=== PATIENT | female | born 1955 | race Caucasian/White ===

== ENCOUNTER 2022-09-21 11:16 | Day surgery (SDC) | payer MEDICARE ==
[2022-09-18 12:01] VITALS: BMI 25.0
[~2022-09-21 11:16] MED LIST: CLINDAMYCIN 600 MG in DEXTROSE 5% IN WATER 50 ML IVPB PRN; FAMOTIDINE 20 MG/2 ML VIAL IV PRN
[2022-09-21] MEDS: LACTATED RINGERS 1,000 ML IV SCH ×2 (12:27→14:14)
[2022-09-21] MEDS ORDERED: ONDANSETRON 4 MG/2 ML VIAL ONE (12:40)
[2022-09-21 12:43] LABS: HGB 14.4 gm/dL (11.4-16.0); MCH 31.7 pg (25.0-35.0); MCHC 33.5 g/dL (31.0-37.0); MCV 94.8 fL (80.0-100.0); Mean Platelet Volume 8.4; Platelet Count 247 k/uL (150-450); RBC 4.54 m/uL (3.80-5.40); RDW 12.6 % (11.5-15.5); WBC 7.5 k/uL (3.8-10.6)
[2022-09-21] MEDS ORDERED: DEXAMETHASONE SOD PHOSPHATE 4 MG/ML 1 ML VIAL IVP ONE (12:45)
[2022-09-21 12:57] LABS: Calcium 12.8 mg/dL (8.4-10.2); Potassium 4.4 mmol/L (3.5-5.1); Total Bilirubin 0.5 mg/dL (0.2-1.3); Total Protein 8.4 g/dL (6.3-8.2)
[2022-09-21] MEDS ORDERED: ROCURONIUM 10 MG/ML (5 ML VIAL) IV ONE (14:14)
[2022-09-21] MEDS ORDERED: MIDAZOLAM 2 MG/2 ML VIAL ONE (14:14)
[2022-09-21] MEDS ORDERED: LIDOCAINE 2% INJ 20 MG/ML (2 ML VIAL) ONE (14:14)
[2022-09-21] MEDS ORDERED: PROPOFOL 10 MG/ML 20 ML VIAL IV ONE (14:14)
[2022-09-21] MEDS ORDERED: PHENYLEPHRINE-0.9% NACL SYG 1,000 MCG/10 ML SYRINGE ONE (14:14)
[2022-09-21] MEDS ORDERED: NEOSTIGMINE 1 MG/ML 10 ML VIAL ONE (14:14)
[2022-09-21] MEDS ORDERED: ePHEDrine 50 MG/ML 1 ML VIAL ONE (14:14)
[2022-09-21] MEDS ORDERED: fentaNYL (PF) 50 MCG/ML 2 ML AMP ONE (14:14)
[2022-09-21] MEDS ORDERED: GLYCOPYRROLATE 0.2 MG/ML 2 ML VIAL ONE (14:14)
--- NOTE | 2022-09-21 14:16 | NM ---
EXAMINATION TYPE: NM parathyroid DATE OF EXAM: 09/21/2022 COMPARISON: NONE INDICATION: Abnormal parathyroid. 10 mCi of technetium 99m sestamibi was administered one hour prior to surgery for assistance during s urgery localization. No imaging was performed. IMPRESSIONS: 1. Successful injection for intrasurgical parathyroid localization.
[2022-09-21] MEDS ORDERED: LIDOCAINE 1%-EPI 1:100,000 20 ML VIAL SQ ONE (15:18)
[2022-09-21] MEDS ORDERED: LACTATED RINGERS 1,000 ML IV ONE (16:10)
[2022-09-21 17:14] VITALS: TEMP 96.8
--- NOTE | 2022-09-21 17:30 | P.OP ---
Date of Procedure: 09/21/22 Preoperative Diagnosis: Parathyroid adenoma Postoperative Diagnosis: same Procedure(s) Performed: Excision of mediastinal parathyroid adenoma Anesthesia: GETA Surgeon: Gabriel Delacruz Estimated Blood Loss (ml): 5 Pathology: other (parathyroid adenoma) Condition: stable Disposition: PACU Indications for Procedure: This patient had an elevated calcium and elevated parathyroid hormone level with normal renal function. There appears to be a parathyroid adenoma and surgical removal is recommended. Operative Findings: Patient had a parathyroid adenoma at the interface of the upper mediastinum on the left side Description of Procedure: Patient was taken to the operative room placed in the supine position a general inhalation anesthetic was administered to the patient by mask and subsequently intubated with a cuffed endotracheal tube by the department of anesthesia with a functioning IV line in place. Patient was monitored throughout the entire case by the department of anesthesia. The neck was sterilely prepped and draped in the usual fashion and anesthetized. A curvilinear incision was made horizontally over the thyroid and dissection was carried to the strap muscles and then in the midline and retracted. This exposed the thyroid gland. We freed up the thyroid gland on the left side and the right side and we did a parathyroid exploration. Previous to the surgery we injected technetium 99 sestamibi. With use of a gamma probe and with exploration we were able to identify a parathyroid adenoma was located in the upper mediastinum deep in the neck. We found the adenoma delivered the adenoma. Powdered Surgicel was applied. Strap muscles were closed with 4-0 Vicryl. Subcutaneous fat was reapproximated with 4-0 Vicryl. The close the deep dermal layer with 4-0 Monocryl and the skin was closed with a 50 rapid Vicryl in a running nonlocking fashion. Steri-Strips were applied and the patient tolerated this well. Follow-up will be in the office in 1 week.
[2022-09-21] MEDS ORDERED: oxyCODONE-APAP 5-325MG 1 EACH TAB ONE ×2 (18:27→19:53)
[2022-09-21] MEDS ORDERED: oxyCODONE-APAP 5-325MG 1 EACH TAB PO ONE ×2 (18:29→19:57)
[2022-09-21 18:57] VITALS: RESP 14
[2022-09-21 20:18] VITALS: BP 115/69; PULSE 106
== END 2022-09-21 20:36 | disposition home or self-care (01) ==
LOC: OR 11:16
PROVIDERS: ATTEND Otolaryngology
DX: D35.1 Benign neoplasm of parathyroid gland (principal); E83.52 Hypercalcemia; I10 Essential (primary) hypertension; Z79.899 Other long term (current) drug therapy
CPT/HCPCS: 80053; 82330; 85027; 83970; 78070; 60200; A9500; J2250; J1100; J2710; J2405; J3010; J2370; J2704; J2001; 88305